=== PATIENT | female | born 1935 | race Caucasian/White ===

== ENCOUNTER → 2017-06-13 | Emergency (ER) | payer OTHER ==
[~2017-06-13] VITALS: Ht 149.9 cm; Wt 59.0 kg
[~2017-06-13] MED LIST: ADALAT CC30 MG PO; CALTRATE 600 W-1 TAB; CATAPRES0.1 MG; CELEBREX100 MG PO; EVISTA60 MG PO; FOSAMAX10 MG PO; HYDROCHLOROTH12.5 M1; HYDROCHLOROTH12.5 M1 PO; LEVITRA10 MG PO; NABUMETONE750 MG; PRILOSEC20 MG PO; SYMBICORT 16010.2 GM; TUSSIONEX PENNKI5 ML PO; VENTOLIN HFA18 GM
== END | disposition home or self-care (01) ==
LOC: ER 17:33
DX: B34.9 Viral infection, unspecified (principal); J11.1 Influenza due to unidentified influenza virus with other respiratory manifestations

== ENCOUNTER 2018-07-14 06:29 | Emergency (ER) | payer OTHER ==
[~2018-07-14] VITALS: Ht 157.5 cm; Wt 65.8 kg
[2018-07-14] MEDS ORDERED: PREDNISONE10 MG (06:57)
[2018-07-14] MEDS ORDERED: SYMBICORT 80/10.2 GM (06:57)
[2018-07-14] MEDS ORDERED: PHENAGIL TABLE1 EACH (06:58)
[2018-07-14] MEDS ORDERED: CARDURA1 MG (06:58)
[2018-07-14] MEDS ORDERED: SINGULAIR 10MG10 MG (06:58)
[2018-07-14] MEDS ORDERED: GUAIFEN-CODEIN118 ML (06:58)
[2018-07-14] MEDS ORDERED: ZITHROMAX500 MG PO (16:22)
[2018-07-14] MEDS ORDERED: MEDROLPACK PO (16:22)
[2018-07-14] MEDS ORDERED: LEVALBUTER1.25 MG/3 IH (16:22)
[2018-07-14] MEDS ORDERED: BUDESONIDE0.5 MG/2 M IH (16:22)
== END 2018-07-14 18:01 | disposition home or self-care (01) ==
LOC: ER 06:29
DX: J45.998 Other asthma (principal); J06.9 Acute upper respiratory infection, unspecified

== ENCOUNTER 2019-07-15 10:28 | Emergency (ER) | payer OTHER ==
[~2019-07-15] VITALS: Ht 157.5 cm; Wt 65.8 kg
[~2019-07-15 10:28] MED LIST changes: +BUDESONIDE0.5 MG/2 M IH; +CARDURA1 MG; +GUAIFEN-CODEIN118 ML; +LEVALBUTER1.25 MG/3 IH; +MEDROLPACK PO; +PHENAGIL TABLE1 EACH; +PREDNISONE10 MG; +SINGULAIR 10MG10 MG; +SYMBICORT 80/10.2 GM; +ZITHROMAX500 MG PO
[2019-07-15] MEDS ORDERED: TESSALON PERLE100 M1 PO (13:31)
[2019-07-15] MEDS ORDERED: DOLOGEN CAPLET1 EACH PO (13:31)
[2019-07-15] MEDS ORDERED: OSEL75CA PO (13:31)
[2019-07-15] MEDS ORDERED: TUSNEL LIQUID178 ML PO (13:31)
== END 2019-07-15 13:52 | disposition home or self-care (01) ==
LOC: ER 10:28
DX: J09.X2 Influenza due to identified novel influenza A virus with other respiratory manifestations (principal)

== ENCOUNTER → 2020-05-12 | Emergency (ER) | payer OTHER ==
[~2020-05-12] VITALS: Ht 157.5 cm; Wt 68.0 kg
[~2020-05-12] MED LIST changes: +ATORVASTATIN CA10 MG PO; +CIPROFLOXACIN500 MG PO; +DOLOGEN CAPLET1 EACH PO; +INTESTINEX680 M1 PO; +LEVSIN0.125 MG PO; +OSEL75CA PO; +PEPCID AC20 MG PO; +TESSALON PERLE100 M1 PO; +TUSNEL LIQUID178 ML PO
== END | disposition left against medical advice (07) ==
LOC: ER 11:32
DX: Z53.20 Procedure and treatment not carried out because of patient's decision for unspecified reasons (principal)

== ENCOUNTER 2020-07-18 17:42 | Emergency (ER) | payer OTHER ==
[~2020-07-18] VITALS: Ht 160 cm; Wt 63.5 kg
[~2020-07-18 17:42] MED LIST changes: -CIPROFLOXACIN500 MG PO; -INTESTINEX680 M1 PO; -LEVSIN0.125 MG PO; -PEPCID AC20 MG PO
== END 2020-07-18 20:10 | disposition home or self-care (01) ==
LOC: ER 17:42
DX: R42 Dizziness and giddiness (principal)

== ENCOUNTER 2020-07-26 22:30 | Emergency (ER) | payer OTHER ==
[~2020-07-26] VITALS: Ht 157.5 cm; Wt 65.8 kg
[2020-07-27] MEDS ORDERED: CIPROFLOXACIN500 MG PO (02:10)
[2020-07-27] MEDS ORDERED: PEPCID AC20 MG PO (02:10)
[2020-07-27] MEDS ORDERED: INTESTINEX680 M1 PO (02:10)
[2020-07-27] MEDS ORDERED: LEVSIN0.125 MG PO (02:55)
== END 2020-07-27 03:13 | disposition home or self-care (01) ==
LOC: ER 22:30
DX: A09 Infectious gastroenteritis and colitis, unspecified (principal)

== ENCOUNTER 2020-12-24 06:07 | Emergency (ER) | payer OTHER ==
[~2020-12-24] VITALS: Ht 157.5 cm; Wt 65.8 kg
[~2020-12-24 06:07] MED LIST changes: +CIPROFLOXACIN500 MG PO; +INTESTINEX680 M1 PO; +LEVSIN0.125 MG PO; +PEPCID AC20 MG PO
[2020-12-24] MEDS ORDERED: LIPITOR20 MG (06:38)
[2020-12-24] MEDS ORDERED: CIPRO500 MG PO (14:21)
[2020-12-24] MEDS ORDERED: PEPCID AC20 MG PO (14:21)
[2020-12-24] MEDS ORDERED: DICY20TA PO (14:21)
== END 2020-12-24 14:24 | disposition home or self-care (01) ==
LOC: ER 06:07
DX: K52.89 Other specified noninfective gastroenteritis and colitis (principal)

== ENCOUNTER → 2024-10-06 | Emergency (ER) | payer OTHER ==
[~2024-10-06] VITALS: Ht 157.5 cm; Wt 65.8 kg
[~2024-10-06] MED LIST changes: +ATORVASTATIN CA10 MG; +CIPRO500 MG PO; +COZAAR25 MG; +DICY20TA PO; +FLONASE ALLERG9.9 ML NASAL; +HYDROCHLOROTH12.5 MG; +LIPITOR20 MG; +MONTELUKAST SOD10 MG; +NEURONTIN300 MG; +TUSNEL DM LIQU473 ML PO; +ZYRTEC10 M3 PO
== END | disposition home or self-care (01) ==
LOC: ER 07:52
DX: Z87.09 Personal history of other diseases of the respiratory system (principal); I10 Essential (primary) hypertension

== ENCOUNTER → 2025-03-03 | Emergency (ER) | payer OTHER ==
[~2025-03-03] VITALS: Ht 157.5 cm; Wt 70.3 kg
[~2025-03-03] MED LIST changes: +BENZONATATE 100 MG CAPSULE PO ONE; +BENZONATATE200 M1 PO; +ZYRTEC10 MG PO
[2025-03-03 11:49] LABS: BASO % 0.4 % (0.1-1.2); EOS # 0.26 (0.04-0.54); EOS % 2.2 % (0.7-7.0); LYMPH # 2.32 (1.18-3.74); LYMPH % 19.4 % (19.3-53.1); MEAN PLATELET VOLUME 9.30 fl (9.4-12.4); MONO # 1.11 (0.24-0.82); MONO % 9.3 % (4.7-12.5); NEUT # 8.18 (1.56-6.13); NEUT % 68.3 % (34.0-71.1); RED CELL DISTRIBUTION WIDTH 12.4 % (11.6-14.4)
[2025-03-03 12:09] LABS: BUN CREA RATIO 33.0 (7.0-25.0); CREATININE SERUM 0.69 mg/dL (0.55-1.02); GFR 80.11; GLUCOSE FASTING 103.0 mg/dL (65-100); OSMOLALITY SERUM 291.0 MOSM/KG (275-295)
[2025-03-03 12:34] LABS: COVID-19 AG NEGATIVE (NEGATIVE)
== END | disposition home or self-care (01) ==
LOC: ER 09:13
PROVIDERS: General Practice
DX: R05.9 Cough, unspecified (principal); R09.82 Postnasal drip; J00 Acute nasopharyngitis [common cold]; Z20.822 Contact with and (suspected) exposure to COVID-19; I10 Essential (primary) hypertension